=== PATIENT | male | born 1970 | race Caucasian/White ===

== ENCOUNTER 2020-10-21 11:03 | Observation (INO) ==
[2020-10-21 12:09] LABS: Basophils % 0.4 %; Eosinophils # 0.3 K/mcL (0.0-0.6); Hematocrit 44.4 % (37.5-50.1); Hemoglobin 14.2 g/dL (12.9-16.9); Immature Granulocytes % 0.3 % (0-4); Lymphocytes # 1.8 K/mcL (0.6-4.6); Lymphocytes % 18.7 %; Mean Corpuscular Hemoglobin 28.7 pg (28.0-33.3); Mean Corpuscular Volume 89.7 fL (83.0-100.0); Mean Platelet Volume 10.5 fL (9.4-12.4); Monocytes # 0.7 K/mcL (0.0-1.3); Monocytes % 7.2 %; Neutrophils # 6.8 K/mcL (1.6-8.9); Platelet Count 255 K/mcL (140-400); Red Blood Count 4.95 M/mcL (4.19-5.50); Red Cell Distribution Width 15.1 % (11.5-14.5); Segmented Neutrophils % 70.4 %; White Blood Count 9.6 K/mcL (4.3-11.1)
[2020-10-21 12:29] LABS: BUN/Creatinine Ratio 22 (6-26); Blood Urea Nitrogen 20 mg/dL (6-20); Calcium 9.9 mg/dL (8.6-10.3); Carbon Dioxide 33 mEq/L (23-29); Chloride 102 mEq/L (98-107); Glucose 112 mg/dL (70-105); Osmolality,Calculated 297 (280-300); Potassium 3.5 mEq/L (3.5-5.1); Sodium 142 mEq/L (136-145); Troponin I < 0.03 ng/mL (< 0.04); eGFR For African Americans > 60 (> 60); eGFR For Non-African Americans > 60 (> 60)
[2020-10-21] MEDS ORDERED: Isovue-370 500 ML BOTTLE IVP ONE (14:24)
[2020-10-21] MEDS ORDERED: Ondansetron 4 MG/2 ML VIAL IVP PRN (16:02)
[2020-10-21] MEDS ORDERED: Naloxone 0.4 MG/ML INJ IVP PRN (16:02)
[2020-10-21] MEDS ORDERED: Perflutren Lipid Microsphere 1.3 ML in 0.9 % Sodium Chloride 8.7 ML IVP PRN (16:04)
[2020-10-21] MEDS ORDERED: Furosemide 40 MG/4 ML VIAL IVP SCH (17:00)
[2020-10-21 17:12] LABS: Adenovirus Not Detected (Not Detect); Coronavirus 229E Not Detected (Not Detect); Coronavirus HKU1 Not Detected (Not Detect); Coronavirus NL63 Not Detected (Not Detect); Coronavirus OC43 Not Detected (Not Detect); Human Metapneumovirus Not Detected (Not Detect); Human Rhinovirus/Enterovirus Not Detected (Not Detect); Influenza A Subtype 2009 H1 Not Detected (Not Detect); Influenza B Not Detected (Not Detect); Parainfluenza Virus 1 Not Detected (Not Detect); Parainfluenza Virus 2 Not Detected (Not Detect); SARS-CoV-2 Not Detected (Not Detect)
[2020-10-21 17:13] LABS: Bordetella Pertussis Not Detected (Not Detect); Chlamydophila pneumoniae Not Detected (Not Detect); Mycoplasma pneumoniae Not Detected (Not Detect); Parainfluenza Virus 3 Not Detected (Not Detect); Parainfluenza Virus 4 Not Detected (Not Detect); Respiratory Syncytial Virus Not Detected (Not Detect)
[2020-10-21] MEDS ORDERED: Albuterol 2.5 MG/3 ML NEBULIZER IH PRN (17:28)
[2020-10-21] MEDS: Furosemide 40 MG/4 ML VIAL IVP SCH (18:46)
[2020-10-21] MEDS: *HR* Heparin 5,000 UNIT/ML VIAL SQ SCH (18:47)
[2020-10-22] MEDS: *HR* Heparin 5,000 UNIT/ML VIAL SQ SCH ×2 (05:36→16:49)
[2020-10-22 07:26] LABS: BUN/Creatinine Ratio 19 (6-26); Blood Urea Nitrogen 17 mg/dL (6-20); Calcium 9.5 mg/dL (8.6-10.3); Carbon Dioxide 33 mEq/L (23-29); Chloride 101 mEq/L (98-107); Glucose 119 mg/dL (70-105); Magnesium 2.5 mg/dL (1.6-2.6); Osmolality,Calculated 299 (280-300); Phosphorous 5.2 mg/dL (2.7-4.5); Potassium 3.7 mEq/L (3.5-5.1); Sodium 143 mEq/L (136-145); Troponin I < 0.03 ng/mL (< 0.04); eGFR For African Americans > 60 (> 60); eGFR For Non-African Americans > 60 (> 60)
[2020-10-22] MEDS: amLODIPine 5 MG TABLET PO SCH (10:13)
[2020-10-22] MEDS: Furosemide 40 MG/4 ML VIAL IVP SCH (10:13)
[2020-10-22] MEDS: Aspirin Enteric Coated 81 MG Tablet PO SCH (10:13)
[2020-10-22] MEDS: Isosorbide MONOnitrate (24 HR) 30 MG TAB.ER.24H PO SCH (10:13)
[2020-10-22] MEDS: atenoloL 50 MG TABLET PO SCH (11:56)
[2020-10-22] MEDS: Bumetanide 1 MG/4 ML VIAL IVP SCH ×2 (16:48→18:08)
[2020-10-23 04:02] LABS: ABG Base Excess 6 mEq/L (-2 to 3); ABG HCO3 35 mEq/L (21-27); ABG Oxygen Saturation 83 % (95-98); ABG PCO2 66 mmHg (35-45); ABG PH 7.32 pH Units (7.32-7.45); ABG PO2 53 mmHg (85-104); ABG TCO2 37 mEq/L (20-26)
[2020-10-23] MEDS: *HR* Heparin 5,000 UNIT/ML VIAL SQ SCH (05:45)
[2020-10-23 06:13] LABS: BUN/Creatinine Ratio 17 (6-26); Blood Urea Nitrogen 15 mg/dL (6-20); Calcium 8.9 mg/dL (8.6-10.3); Carbon Dioxide 31 mEq/L (23-29); Chloride 102 mEq/L (98-107); Glucose 150 mg/dL (70-105); Magnesium 2.6 mg/dL (1.6-2.6); Osmolality,Calculated 294 (280-300); Phosphorous 4.2 mg/dL (2.7-4.5); Potassium 3.7 mEq/L (3.5-5.1); Sodium 140 mEq/L (136-145); eGFR For African Americans > 60 (> 60); eGFR For Non-African Americans > 60 (> 60)
[2020-10-23 06:59] VITALS: BP 119/72; PULSE 61; TEMP 97.4; O2SAT 94
[2020-10-23] MEDS: atenoloL 50 MG TABLET PO SCH (08:59)
[2020-10-23] MEDS: Bumetanide 1 MG/4 ML VIAL IVP SCH (08:59)
[2020-10-23] MEDS: Aspirin Enteric Coated 81 MG Tablet PO SCH (09:00)
[2020-10-23] MEDS: Isosorbide MONOnitrate (24 HR) 30 MG TAB.ER.24H PO SCH (09:00)
[2020-10-23] MEDS ORDERED: Fluticasone Propionate Nasal 50 MCG/SPRAY BOTTLE NS SCH (09:00)
[2020-10-23] MEDS: amLODIPine 5 MG TABLET PO SCH (09:00)
== END 2020-10-23 13:44 | disposition home or self-care (01) ==
LOC: 3ANU 11:03 → EMEROOARM 11:03 → SUATTDRO 17:33 → 3ANU 18:25
PROVIDERS: ADMIT Internal Medicine; ATTEND Internal Medicine